=== PATIENT | female | born 1980 | race Two or more races ===

== ENCOUNTER 2020-01-21 11:03 | Emergency (ER) | payer OTHER, SELFPAY ==
[2020-01-21 11:12] VITALS: BP 101/66; PULSE 85; RESP 18; TEMP 37.7; O2SAT 100
--- NOTE | 2020-01-21 11:15 | ED.URI ---
HPI - URI/Sore Throat General Chief Complaint: Upper Respiratory Infection Stated Complaint: cough/chest hurts/joiner/sore throat/eye pain/body ach Time Seen by Provider: 01/21/20 11:15 Source: patient, family and RN notes reviewed History of Present Illness HPI Narrative: Patient is a 39-year-old female that presents the urgent care with complaints of cough, chest congestion, headache, sore throat, eye pain, body aches. Patient states that symptoms started approximately 2 to 3 days ago. Patient states that she started really feeling awful yesterday. Patient has been using Tylenol and ibuprofen. No other acute complaints. Patient appears slightly fatigued but no acute distress noted. Patient read the plan of care. Related Data Home Medications Medication Instructions Recorded Confirmed acetaminophen [Tylenol] 325 mg PO ONCE 01/21/20 01/21/20 ibuprofen 200 mg PO Q6H PRN 01/21/20 01/21/20 Allergies Allergy/AdvReac Type Severity Reaction Status Date / Time No Known Allergies Allergy Verified 01/21/20 11:21 Review of Systems Review of Systems: Narrative: CONSTITUTIONAL: Reports of fever EYES: Denies visual changes, redness, or discharge. ENT: Reports of sore throat and sinus congestion CARDIOVASCULAR: Denies chest pain, palpitations, or edema. RESPIRATORY: Reports of chest congestion, nonproductive cough without dyspnea GASTROINTESTINAL: Denies abdominal pain, nausea, vomiting, or diarrhea. GENITOURINARY: Denies dysuria or hematuria. SKIN: Denies rash or itching. MUSCULOSKELETAL: Denies back pain, joint pain; reports of body aches NEUROLOGIC: Reports of headache All other systems reviewed are negative, except as documented in HPI. PMFSH Comments At the time of my signature, I reviewed and agree with the nursing past medical, surgical, social, and family history. There is no relevant family history pertinent to the patient complaint. Exam Narrative: Exam Narrative: GENERAL: This is a well-nourished, well-developed patient, appears fatigued and slightly flushed HEAD: normocephalic, atraumatic. EYES: PERRL. Sclera clear/white. Vision is grossly intact. EARS: External ears normal, auditory canals clear and without drainage, moderate fluid behind bilateral TMs without otitis, TMs normal without perforation. Hearing grossly intact. NOSE: External nose normal with no obvious nasal discharge, nares without redness, clear rhinorrhea. THROAT: Mucous membranes moist, posterior pharynx clear. Moderate postnasal drainage NECK: Neck supple, non-tender without lymphadenopathy, masses or thyromegaly. CARDIOVASCULAR: Regular rate and rhythm without murmurs, gallops, or rubs. RESPIRATORY: Clear to auscultation. Breath sounds equal bilaterally. No wheezes, rales, or rhonchi. SKIN: warm, intact with no suspicious lesions or rash, good texture and turgor. NEURO: awake, alert, and oriented to person, place and time. There were no obvious focal neurologic abnormalities. EXTREMITIES: No clubbing, cyanosis, or edema. Course Vital Signs Vital signs: Vital Signs Temperature 99.8 F H 01/21/20 11:12 Pulse Rate 85 01/21/20 11:12 Respiratory Rate 18 01/21/20 11:12 Blood Pressure 101/66 01/21/20 11:12 Pulse Oximetry 100 01/21/20 11:12 Temperature 99.8 F H 01/21/20 11:12 Pulse Rate 85 01/21/20 11:12 Respiratory Rate 18 01/21/20 11:12 Blood Pressure 101/66 01/21/20 11:12 Pulse Oximetry 100 01/21/20 11:12 Reviewed MDM - URI/Sore Throat MDM Narrative Medical decision making narrative: Reviewed lab results with the patient. She is aware that her flu swab was positive for influenza A. Take Xofluza as prescribed. Make sure to eat and drink with the medication. Treat symptoms with [id number] medication such as Robitussin/Delsym for cough, Claritin for allergy-like symptoms, Flonase for nasal congestion, Tylenol/Motrin for fever/body aches. Increase fluids, especially water and rest. Use a humidifier. Be aware
== END 2020-01-21 11:57 | disposition home or self-care (01) ==
PROVIDERS: Emergency Provider Nurse Practitioner Family
DX: J10.1 Influenza due to other identified influenza virus with other respiratory manifestations (principal)
CPT/HCPCS: 87804; 99203; G0463